=== PATIENT | female | born 1925 | race Caucasian/White ===

== ENCOUNTER 2016-07-26 08:45 | Emergency (ER) | payer OTHER ==
[2016-07-26 09:10] VITALS: BP 154/85
--- NOTE | 2016-07-26 09:18 | PROVIDER DOCUMENTATION ---
HPI-Female /OB/Breast - General Chief Complaint: UTI Symptoms Stated Complaint: UTI SX Time Seen by Provider: 07/26/16 09:17 Source: reports: patient Allergies/Adverse Reactions: Patient Allergies Allergy/AdvReac Type Severity Reaction Status Date / Time amoxicillin trihydrate * Allergy ANAPHYLAXIS Verified 07/26/16 09:01 [From Augmentin] ciprofloxacin [From Cipro] Allergy HIVES Verified 07/26/16 09:01 ciprofloxacin HCl * Allergy HIVES Verified 07/26/16 09:01 [From Cipro] codeine Allergy NAUSEA/VOMI Verified 07/26/16 09:01 TING morphine Allergy NAUSEA/VOMI Verified 07/26/16 09:01 TING naproxen Allergy NAUSEA/VOMI Verified 07/26/16 09:01 TING naproxen sodium * Allergy SWELLING Verified 07/26/16 09:01 [From Aleve] potassium clavulanate * Allergy ANAPHYLAXIS Verified 07/26/16 09:01 [From Augmentin] sulfamethoxazole Allergy Unknown Verified 07/26/16 09:01 [From Septra] trimethoprim [From Septra] Allergy Unknown Verified 07/26/16 09:01 Home Medications: Home Medication List Medication Instructions Recorded Confirmed Last Taken Type Aspirin [Aspirin EC] 81 mg PO DAILY 07/26/16 07/26/16 Unknown History Carvedilol [Coreg] 6.25 mg PO BID 07/26/16 07/26/16 Unknown History Clopidogrel [Plavix] 75 mg PO DAILY 07/26/16 07/26/16 Unknown History Losartan [Cozaar] 50 mg PO BID 07/26/16 07/26/16 Unknown History Meclizine [Antivert] 25 mg PO TID 07/26/16 07/26/16 Unknown History Pantoprazole [Protonix] 40 mg PO DAILY 07/26/16 07/26/16 Unknown History SIMVAstatin [Zocor] 40 mg PO QHS 07/26/16 07/26/16 Unknown History Tolterodine [Detrol] 2 mg PO DAILY 07/26/16 07/26/16 Unknown History Triamterene/Hydrochlorothiazid 1 each PO DAILY 07/26/16 07/26/16 Unknown History [Triamterene-Hctz 37.5-25 mg Cp] - History of Present Illness-Female /OB Nature of Presenting Problem: 89 yo F presents to the ER with complaint of urinary frequency, pressure and dysuria. Pt had an isolated LAD heart attack x5 days ago while in [place], [place], had a heart cath x4 days ago. States she had a urinary catheter in place during the procedure. Also complains of mild cough and wheezing. Are currently driving back to [place] and are having to stop at least once every hour to use the restroom. Urinary Symptoms: reports: dysuria, frequency, retention Review of Systems - Adult - REVIEW OF SYSTEMS - ADULT Constitutional: denies: chills, fever Eyes: reports: no symptoms reported Ears, Nose, Mouth & Throat: reports: no symptoms reported Cardiovascular: denies: chest pain, palpitations Respiratory: reports: cough, wheezing Gastrointestinal: denies: diarrhea, nausea, vomiting Genitourinary: reports: dysuria, frequency Musculoskeletal: reports: no symptoms reported Integumentary: reports: no symptoms reported Neurological: reports: no symptoms reported Psychiatric: reports: no symptoms reported Endocrine: reports: no symptoms reported Hematologic/Lymphatic: reports: no symptoms reported Allergic/Immunologic: reports: no symptoms reported All Other Systems: Reviewed and Negative Past History - Adult - PAST MEDICAL HISTORY-ADULT Review of Records: reports: Nursing Assessment Review, Medications Reviewed Cardiovascular: reports: CHF, HTN, MD (Jul 2016) - PRIOR SURGERIES/PROCEDURES Surgical/Procedure History: reports: cardiac stent (2016), joint replacement Physical Exam-General - PHYSICAL EXAM-ADULT Initial Vital Signs Reviewed: Yes - CONSTITUTIONAL General Appearance: alert, no apparent distress - EYES Eyes: PERRL/EOMI, pink conjunctivae - HEAD, EARS, NOSE, MOUTH & THROAT HENMT: normocephalic/atraumatic, normal ENT inspection - NECK Neck: supple, normal inspection - RESPIRATORY Respiratory: no respiratory distress, no accessory muscle use, wheezing - CARDIOVASCULAR Cardiovascular: normal peripheral pulses, regular rate, rhythm - MUSCULOSKELETAL Back Exam: no CVA tenderness, no vertebral tenderness Extremity: normal gait, normal inspection - SKIN Integumentary: normal color, warm/dry - NEUROLOGIC Neurologic: grossly normal, no motor/sensory deficits - PSYCHIATRIC Psych/Mental Status: normal mood/affect, normal thought content, normal thought process, oriented x 3 Progress - PLAN OF CARE/RESULTS Progress/Plan/Lab Results: Vital Signs Temp Pulse Resp BP Pulse Ox 07/26/16 08:55 97.7 F 93 H 18 154/85 96 amoxicillin trihydrate * [From Augmentin] Allergy (Verified 07/26/16 09:01) ANAPHYLAXIS ciprofloxacin [From Cipro] Allergy (Verified 07/26/16 09:01) HIVES ciprofloxacin HCl * [From Cipro] Allergy (Verified 07/26/16 09:01) HIVES codeine Allergy (Verified 07/26/16 09:01) NAUSEA/VOMITING morphine Allergy (Verified 07/26/16 09:01) NAUSEA/VOMITING naproxen Allergy (Verified 07/26/16 09:01) NAUSEA/VOMITING naproxen sodium * [From Aleve] Allergy (Verified 07/26/16 09:01) SWELLING potassium clavulanate * [From Augmentin] Allergy (Verified 07/26/16 09:01) ANAPHYLAXIS sulfamethoxazole [From Septra] Allergy (Verified 07/26/16 09:01) Unknown trimethoprim [From Septra] Allergy (Verified 07/26/16 09:01) Unknown Aspirin [Aspirin EC] 81 mg PO DAILY 07/26/16 Carvedilol [Coreg] 6.25 mg PO BID 07/26/16 Clopidogrel [Plavix] 75 mg PO DAILY 07/26/16 Losartan [Cozaar] 50 mg PO BID 07/26/16 Meclizine [Antivert] 25 mg PO TID 07/26/16 Pantoprazole [Protonix] 40 mg PO DAILY 07/26/16 SIMVAstatin [Zocor] 40 mg PO QHS 07/26/16 Tolterodine [Detrol] 2 mg PO DAILY 07/26/16 Triamterene/Hydrochlorothiazid [Triamterene-Hctz 37.5-25 mg Cp] 1 each PO DAILY 07/26/16 Laboratory 07/26/16 08:56 Urine Source CLEAN CATCH Urine Color YELLOW Urine Clarity CLEAR Urine pH 6.5 Ur Specific [place] 1.015 Urine Protein 1+(30 mg/dL) A Urine Ketones NEGATIVE Urine Blood 2+ A Urine Nitrite POSITIVE A Urine Bilirubin NEGATIVE Urine Urobilinogen NORMAL Urine Microscopic RBC 20-40 A Urine WBC 2+ A Urine Microscopic WBC TNTC A Ur Epithelial Cells <10 Urine Bacteria 3+ Urine Glucose NEGATIVE Orders Category Date Time Status URINALYSIS PL [URINALYSIS] Stat Lab 07/26/16 08:56 Completed URINE MICROSCOPIC [URINALYSIS] Stat Lab 07/26/16 08:56 Completed Departure - Departure Time of Disposition Order: 09:56 DIAGNOSIS: UTI (urinary tract infection) Qualifiers: Urinary tract infection type: site unspecified Hematuria presence: with hematuria Qualified Code(s): N39.0 - Urinary tract infection, site not specified ; R31.9 - Hematuria, unspecified Disposition: HOME 01 Certified Medical Emergency: Emergent Condition: Stable Referrals: None,PCP [Primary Care Provider] - Attestation - Scribe Verification/Attestation Scribe:: Celsa Rodriguez Acting as Scribe for:: Ace Corley Scribe documention review:: This chart was documented by a scribe and accurately reflects the service the provider performed and the decisions made by the provider.
[2016-07-26 09:28] LABS: URINE SOURCE CLEAN CATCH
[2016-07-26 09:42] LABS: BILIRUBIN URINE NEGATIVE (NEGATIVE); BLOOD URINE 2+ (NEGATIVE); CLARITY CLEAR (CLEAR); COLOR YELLOW; GLUCOSE URINE NEGATIVE (NEGATIVE); LEUKOCYTES URINE 2+ (NEGATIVE); NITRITE URINE POSITIVE (NEGATIVE); PH URINE 6.5; PROTEIN URINE 1+(30 mg/dL) mg/dL (NEGATIVE); SP GRAVITY URINE 1.015; URINE MICROSCOPIC NEEDED? YES; UROBILINOGEN URINE NORMAL
[2016-07-26 09:44] LABS: URINE EPITHELIAL CELLS <10 /HPF (<10); URINE RBC 20-40 /HPF (<10); URINE WBC TNTC /HPF (<10)
[2016-07-26] MEDS ORDERED: MACROBID PO ONE (10:03)
== END 2016-07-26 10:40 | disposition home or self-care (01) ==
LOC: P.ED 08:45
DX: N39.0 Urinary tract infection, site not specified (principal); R35.0 Frequency of micturition; R30.0 Dysuria; R05 Cough; R06.2 Wheezing; R33.9 Retention of urine, unspecified; I50.9 Heart failure, unspecified; I10 Essential (primary) hypertension; Z79.899 Other long term (current) drug therapy; I25.2 Old myocardial infarction; Z79.02 Long term (current) use of antithrombotics/antiplatelets; Z79.82 Long term (current) use of aspirin; Z95.5 Presence of coronary angioplasty implant and graft; Z96.60 Presence of unspecified orthopedic joint implant
CPT/HCPCS: 81001; 99283